=== PATIENT | female | born 1945 | race Asian ===

== ENCOUNTER → 2017-12-28 | Outpatient (CLI) | payer MEDICAID | END | disposition home or self-care (01) | LOC: NUC 09:30 | DX: C50.411 Malignant neoplasm of upper-outer quadrant of right female breast (principal) | CPT/HCPCS: 78472 ==

== ENCOUNTER 2018-01-26 15:30 | Emergency (ER) | payer MEDICAID ==
[2018-01-26 17:17] LABS: ADD MAN DIFF? NO
[2018-01-26 17:19] LABS: WHITE BLOOD COUNT 7.2 10^3/ul (4.8-10.8)
[2018-01-26 17:19] LABS: ABNORMAL IP MESSAGE 1; BASOPHILS % 0.1 % (0.0-2.0); EOSINOPHILS % 0.3 % (0.0-7.0); HEMATOCRIT 44.1 % (37.0-47.0); HEMOGLOBIN 13.4 g/dl (12.0-16.0); LYMPHOCYTES # 1.4 10^3/ul (0.8-2.9); MEAN CORPUSCULAR HEMOGLOBIN 19.6 pg (29.0-33.0); MEAN CORPUSCULAR HGB CONC 30.4 g/dl (32.0-37.0); MEAN CORPUSCULAR VOLUME 64.5 fl (82.0-101.0); MONOCYTE # 0.9 10^3/ul (0.3-0.9); MONOCYTES % 12.9 % (0.0-11.0); NEUTROPHIL # 4.8 10^3/ul (1.6-7.5); NEUTROPHILS % 66.6 % (39.0-77.0); RED BLOOD COUNT 6.84 10^6/ul (4.20-5.40); RED CELL DISTRIBUTION WIDTH 20.5 % (11.5-14.5)
[2018-01-26] MEDS ORDERED: SOD CHLORIDE 0.9% 0 ML IV (17:22)
[2018-01-26 17:37] LABS: ANION GAP 13 (5-13); BLOOD UREA NITROGEN 49 mg/dl (7-20); CALCIUM 9.2 mg/dl (8.4-10.2); CARBON DIOXIDE 22 mmol/L (21-31); CHLORIDE 100 mmol/L (97-110); CREATININE 1.43 mg/dl (0.44-1.00); GLUCOSE 122 mg/dl (70-220); SODIUM 135 mmol/L (135-144)
[2018-01-26 18:03] LABS: POSITIVE DIFF @See below
[2018-01-26 18:04] LABS: PLATELET COUNT 55 10^3/UL (140-415)
[2018-01-26 21:35] LABS: TYPE AND SCREEN 1 1
== END 2018-01-27 00:25 | disposition home or self-care (01) ==
LOC: E/R 01-27 00:25
DX: D69.59 Other secondary thrombocytopenia (principal); R40.2142 Coma scale, eyes open, spontaneous, at arrival to emergency department; R40.2252 Coma scale, best verbal response, oriented, at arrival to emergency department; R40.2362 Coma scale, best motor response, obeys commands, at arrival to emergency department; Z85.3 Personal history of malignant neoplasm of breast
CPT/HCPCS: 36430; 80048; 85025; 86644; 86850; 86900; 86901; 86945; 99285-25